=== PATIENT | male | born 1965 | race Caucasian/White ===

== ENCOUNTER 2017-11-21 10:40 | Emergency (ER) | payer BC ==
[2017-11-21 10:48] VITALS: BP 139/81; PULSE 79; TEMP 97.9; BMI 24.4
[2017-11-21] MEDS ORDERED: CEPHALEXIN MONOHYDRATE 500 MG CAPSULE (UD) PO ONE (10:57)
[2017-11-21] MEDS ORDERED: DIPHTH,PERTUSS(ACELL),TET 0.5 ML DISP.SYRIN IM ONE (10:57)
[2017-11-21] MEDS ORDERED: CEPHALEXIN MONOHYDRATE 500 MG CAPSULE (UD) ONE (11:05)
--- NOTE | 2017-11-21 11:28 | PDOC ---
History of Present Illness - General Chief Complaint: Injury Stated Complaint: LEFT HAND LACERATION Time Seen by Provider: 11/21/17 10:47 History Source: Patient Exam Limitations: No Limitations - History of Present Illness Initial Comments: 11/21/17 11:22 Healthy 52-year-old male presents with left hand laceration after he accidentally cut himself while cutting a pipe with a knife. No motor or sensory deficits, applied pressure and controlled some of the bleeding, presents for evaluation. Unknown last tetanus. Past History - Past Medical History Allergies/Adverse Reactions: Allergies Allergy/AdvReac Type Severity Reaction Status Date / Time NSAIDS (Non-Steroidal Allergy Verified 11/21/17 10:43 Anti-Inflamma Home Medications: Ambulatory Orders Cephalexin Monohydrate [Keflex -] 500 mg PO BID #10 capsule 11/21/17 Hydroxyurea 500 mg PO Q48H 11/21/17 COPD: No Other medical history: BONE MARROW DEFICIENCY - Suicide/Smoking/Psychosocial Hx Smoking History: Never smoked Information on smoking cessation initiated: No Hx Alcohol Use: (occasional) Substance Use Type: None Review of Systems - Review of Systems Musculoskeletal: No: Joint Pain Integumentary: Yes: See HPI Neurological: No: Tingling, Weakness *Physical Exam - Vital Signs Last Vital Signs Temp Pulse Resp BP Pulse Ox 97.9 F 79 18 139/81 96 11/21/17 10:40 11/21/17 10:40 11/21/17 10:40 11/21/17 10:40 11/21/17 10:40 - Physical Exam Comments: 11/21/17 11:22 Vital signs normal. GENERAL: The patient is awake, alert, and fully oriented, in no acute distress. HEAD: Normal with no signs of trauma. EYES: Pupils equal, round and reactive to light, extraocular movements intact, sclera anicteric, conjunctiva clear. EXTREMITIES: Normal range of motion, no edema. 5 out of 5 flexion/extension/ abduction/abduction of the thumb and all digits. Sensation intact, brisk cap refill. NEUROLOGICAL: Normal speech, normal gait. PSYCH: Normal mood, normal affect. SKIN: Linear horizontal laceration across the palmar aspect of the left hand over the first metacarpal. There is some fat and muscle exposure but no tendon exposure or injury, there is no foreign body or deeper tissue injury on range of motion evaluation. Medical Decision Making - Medical Decision Making 11/21/17 11:24 52-year-old male with uncomplicated left hand laceration, neurovascularly intact. Update tetanus Prophylactic Keflex given deep tissue exposure LACERATION REPAIR: The skin was prepped with Saline. 2% lidocaine was injected subcutaneously for local anesthesia. Normal saline lavage, high pressure, high volume was performed. 4-0 nylon, simple interrupted sutures, x 4 were placed. Bacitracin and dry sterile dressing were applied. Patient was advised regarding signs and symptoms of infection that would indicate a need to see the doctor immediately, as well as instructions for suture removal. *DC/Admit/Observation/Transfer Diagnosis at time of Disposition: Laceration of left hand Qualifiers: Encounter type: initial encounter Foreign body presence: without foreign body Qualified Code(s): S61.412A - Laceration without foreign body of left hand, initial encounter - Discharge Dispostion Disposition: HOME Condition at time of disposition: Improved - Prescriptions Prescriptions: Cephalexin Monohydrate [Keflex -] 500 mg PO BID #10 capsule - Referrals - Patient Instructions Printed Discharge Instructions: DI for Laceration Repair Additional Instructions: Activity as tolerated. Stay hydrated. Tylenol 1000 mg every 8 hours as needed for pain. Elevate the affected areas for 20 minutes every 3-4 hours to reduce swelling. Maintain current dressing for 48 hours, then bacitracin dressing changes twice daily until healed. Avoid soaking or scrubbing. Have the stitches removed in 7- 10 days. Take Keflex as prescribed for 5 days as an antibiotic to prevent infection. Continue your medications as previously prescribed by your physician. You should follow up in 7-10 days to have the stitches removed. Return to the emergency department for any new or concerning symptoms, particularly numbness or tingling or weakness, redness or swelling or pus or bleeding, fevers or chills, pain. - Post Discharge Activity
== END 2017-11-21 11:55 | disposition home or self-care (01) ==
LOC: FER 10:40
PROC: 0HQGXZZ Repair Left Hand Skin, External Approach (ICD-10-PCS; principal; 2017-11-21)
PROC: 3E0234Z Introduction of Serum, Toxoid and Vaccine into Muscle, Percutaneous Approach (ICD-10-PCS; 2017-11-21)
DX: S61.412A Laceration without foreign body of left hand, initial encounter (principal); W26.0XXA Contact with knife, initial encounter; Y93.89 Activity, other specified; Y92.9 Unspecified place or not applicable
CPT/HCPCS: 90715; 99284-25